=== PATIENT | female | born 1955 | race Caucasian/White ===

== ENCOUNTER → 2017-08-26 08:47 | Outpatient (CLI) | payer OTHER, SELFPAY | PROVIDERS: Family Provider Internal Medicine Adolescent Medicine; PCP Internal Medicine Adolescent Medicine; Visit Provider Nurse Practitioner Family | DX: E11.9 Type 2 diabetes mellitus without complications (principal); Z71.3 Dietary counseling and surveillance | CPT/HCPCS: 97802; G0108 ==

== ENCOUNTER → 2017-12-18 09:55 | Outpatient (CLI) | payer OTHER, SELFPAY ==
[2017-12-18 10:55] LABS: Alanine Aminotransferase 33 U/L (12-78); Albumin Level 3.5 gm/dL (3.4-5.0); Albumin/Globulin Ratio 0.8 (1.1-1.8); Alkaline Phosphatase 91 U/L (46-116); Anion Gap 10.1 mEq/L (5-15); Aspartate Amino Transferase 20 U/L (15-37); Bilirubin,Total 0.3 mg/dL (0.2-1.0); Blood Urea Nitrogen 21 mg/dL (7-18); Calcium 8.9 mg/dL (8.5-10.1); Carbon Dioxide 29 mmol/L (21.0-32.0); Chloride 106 mmol/L (98-107); Chol/HDL Ratio 4.5 (1-3.5); Cholesterol 279 mg/dL (140-200); Creatinine,Serum 0.59 mg/dL (0.55-1.02); Estimated Glomerular Filt Rate 104 ml/min (>60); Free Thyroxine Index 2.7 ug/dL (5.93-13.13); GFR (African American) 126 ML/MIN (>60); Globulin 4.3 gm/dl (1.3-3.2); Glucose 97 mg/dL (74-106); HDL Cholesterol 62 mg/dL (29-89); LDL Cholesterol 181 mg/dL (0-130); Potassium 4.1 mmoL/L (3.5-5.1); Sodium 141 mmol/L (136-145); T4 (Thyroxine) 8.1 ug/dl (4.7-13.3); Thyroid Stimulating Hormone 1.63 uIU/ml (0.358-3.740); Total Protein,Serum 7.8 gm/dL (6.4-8.2); Triglycerides 180 mg/dL (30-200); Triiodothryronine (T3) Uptake 33 % (31-39); VLDL Cholesterol 36 mg/dL (0-40)
[2017-12-18 10:58] LABS: Hemoglobin A1C 5.6 % (0.0-7.0)
== END ==
PROVIDERS: PCP Internal Medicine Adolescent Medicine; Visit Provider Nurse Practitioner Family
DX: E78.5 Hyperlipidemia, unspecified (principal); E11.9 Type 2 diabetes mellitus without complications; I10 Essential (primary) hypertension; R94.6 Abnormal results of thyroid function studies
CPT/HCPCS: 36415; 80053; 80061; 83036; 84436; 84443; 84479

== ENCOUNTER → 2018-09-16 10:07 | Outpatient (CLI) | payer OTHER, SELFPAY ==
[2018-09-16 10:52] LABS: Hemoglobin A1C 5.8 % (0.0-7.0)
[2018-09-16 12:09] LABS: Alanine Aminotransferase 30 U/L (12-78); Albumin Level 3.7 gm/dL (3.4-5.0); Albumin/Globulin Ratio 0.8 (1.1-1.8); Alkaline Phosphatase 97 U/L (46-116); Aspartate Amino Transferase 20 U/L (15-37); Bilirubin,Total 0.5 mg/dL (0.2-1.0); Blood Urea Nitrogen 14 mg/dL (7-18); Calcium 9.2 mg/dL (8.5-10.1); Carbon Dioxide 25 mmol/L (21.0-32.0); Chloride 105 mmol/L (98-107); Cholesterol 266 mg/dL (140-200); Creatinine,Serum 0.58 mg/dL (0.55-1.02); Estimated Glomerular Filt Rate 106 ml/min (>60); GFR (African American) 128 ML/MIN (>60); Globulin 4.6 gm/dl (1.3-3.2); Glucose 106 mg/dL (74-106); HDL Cholesterol 66 mg/dL (29-89); LDL Cholesterol 170 mg/dL (0-130); Sodium 142 mmol/L (136-145); Total Protein,Serum 8.3 gm/dL (6.4-8.2); Triglycerides 148 mg/dL (30-200); VLDL Cholesterol 30 mg/dL (0-40)
[2018-09-17 08:26] LABS: Microalbumin, Urine 11.3 ug/mL (Not Estab.)
== END ==
PROVIDERS: Visit Provider Internal Medicine Adolescent Medicine
DX: E78.5 Hyperlipidemia, unspecified (principal); E03.9 Hypothyroidism, unspecified; I10 Essential (primary) hypertension
CPT/HCPCS: 36415; 80053; 80061; 82043; 82570; 83036; 84443

== ENCOUNTER → 2019-08-03 09:39 | Outpatient (CLI) | payer OTHER, SELFPAY ==
[2019-08-03 10:08] LABS: Basophils # 0.1 K/mm3 (0-0.2); Basophils % 0.8 % (0.1-2.0); Eosinophils # 0.4 K/mm3 (0.0-0.4); Eosinophils % 4.9 % (0.1-12.0); Hematocrit 40.1 % (37.0-47.0); Hemoglobin 12.7 g/dL (12.2-16.2); Lymphocytes # 1.9 K/mm3 (0.7-4.5); Lymphocytes % 24.9 % (10-50); Mean Corpuscular HGB Conc 31.8 g/dL (31.8-35.4); Mean Corpuscular Hemoglobin 26.5 pg (27.0-31.2); Mean Corpuscular Volume 83.6 fl (81-99); Monocytes # 0.4 K/mm3 (0.1-1.0); Monocytes % 5.5 % (1.7-9.3); Neutrophils # 4.7 K/mm3 (1.8-7.8); Neutrophils % 63.9 % (37.0-80.0); Platelet Count 365 K/mm3 (142-424); Red Blood Count 4.79 M/mm3 (4.20-5.40); Red Cell Distribution Width 13.9 % (11.5-17.5); White Blood Count 7.4 K/mm3 (4.8-10.8)
[2019-08-03 11:32] LABS: Chloride 104 mmol/L (98-107); Potassium 4.4 mmoL/L (3.5-5.1); Sodium 139 mmol/L (136-145)
[2019-08-03 11:35] LABS: Alanine Aminotransferase 31 U/L (12-78); Albumin Level 4.2 g/dl (3.5-5.0); Albumin/Globulin Ratio 1.2 (1.1-1.8); Alkaline Phosphatase 88 U/L (38-126); Anion Gap 12.4 mEq/L (5-15); Aspartate Amino Transferase 31 U/L (14-36); Bilirubin,Total 0.4 mg/dl (0.2-1.3); Blood Urea Nitrogen 16 mg/dl (7-17); Carbon Dioxide 27 mmol/L (22.0-30.0); Cholesterol 265 mg/dl (140-200); Estimated Glomerular Filt Rate 102 ml/min (>60); GFR (African American) 123 ML/MIN (>60); Globulin 3.5 g/dL (1.3-3.2); Total Protein,Serum 7.7 g/dl (6.3-8.2); Triglycerides 230 mg/dl (30-150); VLDL Cholesterol 46 mg/dL (0-40)
[2019-08-03 11:36] LABS: Calcium 9.7 mg/dl (8.4-10.2); Chol/HDL Ratio 5.1 (1-3.5); Glucose 115 mg/dl (74-100); HDL Cholesterol 52 mg/dl (40-60)
[2019-08-03 11:47] LABS: Direct LDL Cholesterol 166.29 mg/dL (100-129)
[2019-08-03 11:52] LABS: Free T4 (Free Thyroxine) 1.01 ng/dl (0.78-2.19)
[2019-08-03 12:06] LABS: Thyroid Stimulating Hormone 1.64 uIU/mL (0.465-4.68)
[2019-08-04 10:37] LABS: Vitamin B12 710 pg/mL (232-1245); Vitamin D 25 Hydroxy 16.2 ng/mL (30.0-100.0)
[2019-08-04 11:09] LABS: Creatinine, Urine 143.1 mg/dL (Not Estab.); Microalbumin, Urine 7.7 ug/mL (Not Estab.)
== END ==
PROVIDERS: Visit Provider Nurse Practitioner Family
DX: E03.9 Hypothyroidism, unspecified (principal); E55.9 Vitamin D deficiency, unspecified; E78.2 Mixed hyperlipidemia; E11.9 Type 2 diabetes mellitus without complications; R53.81 Other malaise; M89.9 Disorder of bone, unspecified; M94.9 Disorder of cartilage, unspecified
CPT/HCPCS: 36415; 80053; 80061; 82043; 82570; 82607; 82652; 83036; 84439; 84443; 85025

== ENCOUNTER → 2019-08-18 08:47 | Outpatient (CLI) | payer OTHER, SELFPAY ==
--- NOTE | 2019-08-18 08:50 | MM_ITS ---
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 R2 CAD reviewed. FINDINGS: Mostly fatty replaced fibroglandular tissue. There are bilateral benign-appearing nodules which are stable. Benign-appearing calcifications are also noted. No malignant appearing mass or malignant-appearing microcalcification IMPRESSION: BI-RAD Category: 2 Benign Finding(s) FOLLOW-UP: 1YR 1 Year Follow-up (A letter has been sent to the patient regarding results of the study.) Dictated by: Butch Dang MD 08/22/2019 09:50 Electronically signed by Butch Dang MD in [place] 08/22/2019 09:50
== END ==
PROVIDERS: PCP Internal Medicine Adolescent Medicine; Visit Provider Nurse Practitioner Family
DX: Z12.31 Encounter for screening mammogram for malignant neoplasm of breast (principal)
CPT/HCPCS: 77063; 77067

== ENCOUNTER → 2020-12-06 12:14 | Outpatient (CLI) | payer OTHER, SELFPAY ==
[2020-12-06 13:44] LABS: Hemoglobin A1C 5.5 % (4.0-6.0)
[2020-12-06 14:14] LABS: Chloride 104 mmol/L (98-107); Potassium 4.7 mmoL/L (3.5-5.1); Sodium 144 mmol/L (136-145)
[2020-12-06 14:16] LABS: Blood Urea Nitrogen 20 mg/dl (7-17); Estimated Glomerular Filt Rate 85 ml/min (>60); GFR (African American) 102 ML/MIN (>60)
[2020-12-06 14:17] LABS: Alanine Aminotransferase 42 U/L (12-78); Albumin Level 4.9 g/dl (3.5-5.0); Albumin/Globulin Ratio 1.1 (1.1-1.8); Alkaline Phosphatase 115 U/L (38-126); Anion Gap 18.7 mEq/L (5-15); Aspartate Amino Transferase 42 U/L (14-36); Bilirubin,Total 0.6 mg/dl (0.2-1.3); Calcium 10.7 mg/dl (8.4-10.2); Carbon Dioxide 26 mmol/L (22.0-30.0); Chol/HDL Ratio 4.3 (1-3.5); Cholesterol 243 mg/dl (140-200); Globulin 4.4 g/dL (1.3-3.2); Glucose 105 mg/dl (74-100); HDL Cholesterol 56 mg/dl (40-60); Total Protein,Serum 9.3 g/dl (6.3-8.2); Triglycerides 175 mg/dl (30-150); VLDL Cholesterol 35 mg/dL (0-40)
[2020-12-06 14:33] LABS: 25-OH Vitamin D, Total 25.2 ng/mL (30-100)
[2020-12-06 14:48] LABS: Thyroid Stimulating Hormone 3.09 uIU/mL (0.465-4.68)
== END ==
PROVIDERS: Visit Provider Nurse Practitioner Family
DX: E11.9 Type 2 diabetes mellitus without complications (principal); E78.2 Mixed hyperlipidemia; E03.9 Hypothyroidism, unspecified; E55.9 Vitamin D deficiency, unspecified
CPT/HCPCS: 36415; 80053; 80061; 82306; 83036; 84443

== ENCOUNTER → 2021-11-21 08:12 | Outpatient (CLI) | payer BC, SELFPAY ==
--- NOTE | 2021-11-21 08:30 | XR_ITS ---
FINAL REPORT TECHNIQUE: Bone mineral density was calculated of the right forearm and left hip. CLINICAL HISTORY: . post menopausal FINDINGS: Using the distal right forearm, the bone mineral density of the right forearm is 0.638 g/cm2, corresponding to T-score of -0.9 Using the left hip, the bone mineral density of the left femoral neck is 0.905 g/cm2, corresponding to a T-score of 0.5. NOTE: T-score: Standard deviation compared with peak bone mass of young adult mean. *Following the recommendations of the International Society of Bone densitometry, classification of hip BMD is based on the lower of two T-scores; total hip or femoral neck. IMPRESSION: Normal bone mineral density of the right forearm and left hip. Reviewed, Interpreted and Dictated by Juan Loera III, MD Transcribed by Yen Condon Authenticated and [facility]
--- NOTE | 2021-11-21 08:30 | MM_ITS ---
PROCEDURE INFORMATION: Exam: MG Bilateral Screening 3D Mammography Exam date and time: 11/21/2021 8:29 AM Age: 66 years old Clinical indication: Screening examination TECHNIQUE: Imaging protocol: Bilateral Screening tomosynthesis and 2D mammography including computer-aided detection (CAD) when performed. COMPARISON: 1. MG MM DIG SCREENING MAMM BI W/CAD 08/18/2019 9:09 AM 2. MG DMSB DIG MAMM-SCREEN ANILA 09/04/2013 9:48 AM FINDINGS: MAMMOGRAPHY: Breast composition: There are scattered areas of fibroglandular density. Mass: None. Architectural distortion: None. Calcifications: No suspicious calcifications. Asymmetric density: None. Skin thickening: None. Axillary adenopathy: None. IMPRESSION: No mammographic evidence of malignancy. Annual screening is recommended unless otherwise clinically indicated. ASSESSMENT: BI-RADS Category 1: Negative
== END ==
PROVIDERS: PCP Nurse Practitioner Family; Visit Provider Nurse Practitioner Family
DX: Z12.31 Encounter for screening mammogram for malignant neoplasm of breast (principal); Z13.820 Encounter for screening for osteoporosis; Z78.0 Asymptomatic menopausal state
CPT/HCPCS: 77063; 77067; 77080

== ENCOUNTER → 2023-02-18 07:57 | Outpatient (CLI) | payer MEDICARE, SELFPAY ==
--- NOTE | 2023-02-18 08:02 | MM_ITS ---
PROCEDURE INFORMATION: Exam: MG Bilateral Screening 3D Mammography Exam date and time: 02/18/2023 7:50 AM Age: 67 years old Clinical indication: Screening mammogram TECHNIQUE: Imaging protocol: Bilateral Screening tomosynthesis and 2D mammography including computer-aided detection (CAD) when performed. COMPARISON: 1. MG MM DIG SCREENING MAMM BI W/CAD 11/21/2021 8:29 AM 2. MG MM DIG SCREENING MAMM BI W/CAD 08/18/2019 9:09 AM 3. MG DMSB DIG MAMM-SCREEN ANILA 09/04/2013 9:48 AM 4. MG DMSB DIGITAL MAMM-SCREEN BILATERAL 04/16/2010 9:13 AM FINDINGS: MAMMOGRAPHY: Breast composition: There are scattered areas of fibroglandular density. Mass: Stable benign-appearing subcentimeter nodules are present in the bilateral breast. No new or morphologically suspicious nodule has developed to suggest malignancy. Architectural distortion: No new or suspicious architectural distortion. Calcifications: No new or suspicious calcifications are present Asymmetric density: No new or suspicious asymmetric density is present Skin thickening: None. Axillary adenopathy: None. IMPRESSION: No mammographic evidence of malignancy. Recommend annual screening mammography unless otherwise clinically indicated. ASSESSMENT: BI-RADS category 2: Benign
== END ==
PROVIDERS: PCP Nurse Practitioner Family; Visit Provider Nurse Practitioner Family
DX: Z12.31 Encounter for screening mammogram for malignant neoplasm of breast (principal)
CPT/HCPCS: 77063; 77067

== ENCOUNTER 2024-10-28 19:46 | Emergency (ER) | payer MEDICARE, SELFPAY ==
[2024-10-28 19:51] VITALS: BP 157/77; PULSE 86; RESP 18; TEMP 36.8; O2SAT 96; BMI 35.6
--- NOTE | 2024-10-28 19:56 | XR_ITS ---
PROCEDURE INFORMATION: Exam: XR Chest Exam date and time: 10/28/2024 8:09 PM Age: 69 years old Clinical indication: Injury or trauma; Fall; Other: Left rib pain; Additional info: Fall with left rib pain TECHNIQUE: Imaging protocol: Radiologic exam of the chest. Views: 2 views. COMPARISON: No relevant prior studies available. FINDINGS: Lungs: Unremarkable. No consolidation. Pleural spaces: Unremarkable. No pleural effusion. No pneumothorax. Heart/Mediastinum: Unremarkable. No cardiomegaly. Bones/joints: Unremarkable. IMPRESSION: No acute findings.
--- NOTE | 2024-10-28 21:01 | CT_ITS ---
PROCEDURE INFORMATION: Exam: CT Chest Without Contrast; Diagnostic Exam date and time: 10/28/2024 9:23 PM Age: 69 years old Clinical indication: Injury or trauma; Fall; Other: L thoracic cage pain; Additional info: Fall, L thoracic cage pain TECHNIQUE: Imaging protocol: Diagnostic computed tomography of the chest without contrast. Radiation optimization: All CT scans at this facility use at least one of these dose optimization techniques: automated exposure control; mA and/or kV adjustment per patient size (includes targeted exams where dose is matched to clinical indication); or iterative reconstruction. COMPARISON: CR XR CHEST 2V 10/28/2024 8:09 PM FINDINGS: Lungs: Bibasilar atelectasis. Pleural spaces: Unremarkable. No pneumothorax. No pleural effusion. Heart: Unremarkable. No cardiomegaly. No pericardial effusion. Lymph nodes: Unremarkable. No enlarged lymph nodes. Vasculature: Unremarkable. No aortic aneurysm. Bones/joints: Unremarkable. No acute fracture. Soft tissues: Unremarkable. IMPRESSION: No acute findings.
--- NOTE | 2024-10-28 21:04 | HMH.EDGENADL ---
Discharge Plan Disposition Patient Disposition: Home, Self-Care Prescriptions Prescriptions: New methocarbamol 500 mg tablet 1,000 mg PO Q8H PRN (Reason: muscle pain and spasm) Qty: 30 0RF No Action venlafaxine 75 MG tablet 75 mg PO DAILY metoprolol ta-hydrochlorothiaz 1 EACH tablet 1 each PO DAILY levothyroxine 50 MCG tablet 50 mcg PO DAILY pantoprazole 40 MG tablet,delayed release (DR/EC) 40 mg PO DAILY ergocalciferol (vitamin D2) 50,000 UNIT capsule 50,000 unit PO WEEKLY linagliptin-metformin 1 EACH tablet, IR - ER, biphasic 24hr 1 each PO DAILY Referrals Follow up/Referrals: Shlomo Maradiaga MD [Primary Care Provider] - See instructions Activity Restrictions/Add. Instructions Additional Instructions/Restrictions: At this time it was felt you are safe to be discharged home. If new or worsening symptoms please do not hesitate to return the emergency department. Please take your medications as prescribed. Clinical Impressions Clinical Impression: Pain in rib, Muscle strain Print Language Print Language: Kyrgyz Discharge ED Provider: Vega Choi General Adult HPI General Chief complaint: PAIN Stated complaint: AO 5-17 fell and hurt left ribs,SOA Time Seen by Provider: 10/28/24 20:20 Mode of Arrival: Ambulatory Source of Information: Patient Description of Symptoms (Recalled from ER Triage Doc. by RN): Pt presents for evaluation of left sided rib pain after falling at the [employer] parking lot yesterday when attempting to fruit picker an item that blew out of her car. Pt states she landed on her left side. SHe states it knocked the wind out of her . Pt continues to have sharp pain that is worse with movement and coughing. Pt states this AM she took ibuprofen for pain. Pt states she did not hit her head, -loc/-bt History of Present Illness HPI narrative: Patient is 69-year-old female not on anticoagulants presents emergency department for evaluation of traumatic injury sustained in a mechanical fall. Onset was acute, she tripped while shopping yesterday on her left thoracic cage did not hit her head no anticoagulants, she has a scratch over her left lateral hand that is not causing her significant pain. She has pain over her left rib cage that is worse with taking a deep breath, no abdominal trauma no other extremity trauma no other acute complaints at this time. Related Data Home Medications ?Medication ?Instructions ?Recorded ?Confirmed ergocalciferol (vitamin D2) 1,250 50,000 unit PO WEEKLY Supplement 08/17/19 08/17/19 mcg (50,000 unit) capsule levothyroxine 50 mcg tablet 50 mcg PO DAILY hypothroidism 08/17/19 08/17/19 linagliptin 5 mg-metformin ER 1 each PO DAILY Diabetes 08/17/19 08/17/19 1,000 mg tablet,extended release 24 hr metoprolol tartrate 50 1 each PO DAILY blood pressure 08/17/19 08/17/19 mg-hydrochlorothiazide 25 mg tablet pantoprazole 40 mg tablet,delayed 40 mg PO DAILY acid reflux 08/17/19 08/17/19 release venlafaxine 75 mg tablet 75 mg PO DAILY Depression 08/17/19 08/17/19 Previous Rx's ?Medication ?Instructions ?Recorded methocarbamol 500 mg tablet 1,000 mg (2 x 500 mg) PO Q8H PRN 10/28/24 muscle pain and spasm #30 tabs Allergies Allergy/AdvReac Type Severity Reaction Status Date / Time mepivacaine (MEPIVACAINE) Allergy Unknown Verified 08/17/19 09:17 [facility] Disclaimer: The information contained in this section may have been updated after the patient was seen, as this information can be updated by other users. Social History Smoking Status: Never smoker alcohol intake: never current occupational status: unemployed Travel in the last 8 weeks?: None caffeine: Yes Have you lived/traveled outside US in past 30 days?: No Contact w/someone who lives/traveled outside US past 30 days?: No Exposure to someone with infectious disease in past 14 days?: No Do you have a fever (greater than 100.4 F or 38 C)?: No Have you tested positive for COVID-19?: No Exposed to someone with COVID-19 in past 14 days?: No Do you have a sore throat?: No Do you have a cough?: No Do you have any weakness?: No Do you have any diarrhea?: No Are you experiencing any unusual bleeding?: No Do you have any muscle aches/pain?: No Do you have any abdominal pain?: No Are you experiencing loss of taste or smell?: No Other Medical History Have you received the Flu Vaccine for this season: No Have you received the Pneumonia Vaccine: No ROS Obtained: Yes Systems reviewed as appropriate & no additional complaints except as documented Physical Exam General General appearance: in no apparent distress Comment: Appearing uncomfortable in chair at bedside Head Head exam: atraumatic and normocephalic Eye Eye exam: Present PERRL and EOMI ENT ENT exam: Present mucous membranes moist Neck Neck exam: Present normal inspection Chest Chest inspection: Present normal inspection, symmetric chest wall rise and tenderness (Left anterolateral thoracic cage no overlying bruising) Respiratory Respiratory exam: Present normal lung sounds bilaterally; Absent respiratory distress Cardiovascular Cardiovascular exam: Present regular rate and normal rhythm Abdominal Exam Abdominal exam: Present soft; Absent tenderness, guarding or rebound Extremities Exam Extremities exam: Present normal inspection Neurological Exam Neurological exam: Present alert Psychiatric Psychiatric exam: Present normal affect Skin Skin exam: Present warm and dry Medical Decision Making Medical Records Screening: Per USPSTF and CDC recommendations, given the prevalence of disease in our region, it is our hospital?s policy to screen for HIV and viral Hepatitis for all patients aged 18 and over and those with ongoing risk factors. [place] Inquiry Pt receiving controlled substance: No Vital Signs: 10/28/24 19:51 10/28/24 22:12 10/28/24 22:30 Temperature 98.3 F Temperature Source Oral Pulse Rate 78 72 Pulse Rate [Right] 86 Respiratory Rate 18 16 Blood Pressure 136/92 H 132/80 Blood Pressure [Right Arm] 157/77 H Blood Pressure Mean [Right Arm] 103 Blood Pressure Source Automatic Cuff Blood Pressure Source [Right Arm] Automatic Cuff Blood Pressure Position Sitting Blood Pressure Position [Right Arm] Sitting 02 Sat by Pulse Oximetry 96 96 95 Oxygen Delivery Method Room Air Room Air Orders (Tests/Meds): ED MEDICATIONS Discontinued Medications Generic Name Dose Route Start Last Admin Trade Name Freq PRN Reason Stop Dose Admin Acetaminophen 1,000 mg 10/28/24 21:01 10/28/24 21:34 Acetaminophen 500mg Tab PO 10/28/24 21:02 1,000 mg ONCE ONE Administration Ibuprofen 600 mg 10/28/24 21:01 10/28/24 21:34 Ibuprofen 600 Mg Tablet PO 10/28/24 21:02 600 mg ONCE ONE Administration Lidocaine 1 each 10/28/24 21:01 10/28/24 21:34 Lidocaine 5% Transdermal Patch TD 10/28/24 21:02 1 each ONCE ONE Administration Oxycodone HCl 5 mg 10/28/24 21:03 10/28/24 21:34 Oxycodone 5mg Immediate Release Tablet PO 10/28/24 21:04 5 mg ONCE ONE Administration ORDERS Category Date Time Status CT chest wo con Stat Cat Scan 10/28/24 21:01 Completed Chest XR 2 view (NOT portable) [XR chest 2V] Stat Exams 10/28/24 19:56 Completed Medical Decision Narrative: In summary patient is 69-year-old female with past medical history described above who presents emergency department for evaluation of traumatic injury sustained in a fall. Patient is hemodynamically stable nontoxic-appearing upon arrival, afebrile. Differential diagnosis includes rib fracture, pulmonary contusion, musculoskeletal strain, among others. Initial workup we conducted with CT chest without contrast given the patient does not take anticoagulants and her morbidity from multiple rib fractures will be high. Initial inventions include multimodal pain control. Chest CT informally visualized by me, no acute obvious significantly displaced left-sided rib fractures. Formal read shows no acute pathology. Given this patient is appropriate for outpatient management at this time will be discharged with a course of Robaxin and lidocaine patches and was given return precautions. Critical Care Critical Care Time Critical Care Time: No
[2024-10-28] MEDS: ACETAMINOPHEN 500MG TAB 1000 MG PO (21:34)
[2024-10-28] MEDS: OXYCODONE 5MG IMMEDIATE RELEASE TABLET 5 MG PO (21:34)
[2024-10-28] MEDS: IBUPROFEN 600 MG TABLET PO (21:34)
[2024-10-28] MEDS: LIDOCAINE 5% TRANSDERMAL PATCH 1 EACH TD (21:34)
[2024-10-28 22:12] VITALS: BP 136/92; PULSE 78; RESP 16; O2SAT 96
[2024-10-28 22:30] VITALS: BP 132/80; PULSE 72; O2SAT 95
[2024-10-28 23:29] VITALS: BP 131/80; PULSE 76; RESP 20; TEMP 36.8; O2SAT 94
== END 2024-10-28 23:37 | disposition home or self-care (01) ==
PROVIDERS: Emergency Provider Emergency Medicine; PCP Internal Medicine Adolescent Medicine
DX: R07.81 Pleurodynia (principal); S29.011A Strain of muscle and tendon of front wall of thorax, initial encounter; W19.XXXA Unspecified fall, initial encounter
CPT/HCPCS: 71046; 71250; 99284

== ENCOUNTER 2024-12-05 17:05 | Outpatient (CLI) | payer MEDICARE, SELFPAY ==
--- OUTSIDE RECORDS SUMMARY | 2024-12-05 17:10 | XMS_ITS | Clinical Summary ---
Author Organization [facility] Address [address] [place] [address] Phone Care Team Providers Care Building Energy Retrofit Technician Name Role Phone Juanita SHERMAN, Alexandreaashmyla Unavailable Conditions or Problems No information available. Medications No information available. Medications Administered No information available. Allergies, Adverse Reactions, Alerts No information available. Results No information available. Plan of Care No information available. Procedures No information available. Vital Signs No information available. Immunizations No information available. Advance Directives No information available.
--- OUTSIDE RECORDS SUMMARY | 2024-12-05 17:11 | XMS_ITS | Clinical Summary ---
Author Organization Healthcare Address [facility] [place] [address] Care Team Providers Care Sales Service Representative Name Role Phone Shlomo Maradiaga MD Primary Care Provider + [phone] Family History Medical History Relation Name Comments Cardiac disorder Father Depression Father Hypertension Father Depression Mother Hypertension Mother Relation Name Status Comments Father Mother Social History Tobacco Use Types Packs/Day Years Used Date Smoking Tobacco: Never Alcohol Use Standard Drinks/Week Comments No 0 (1 standard drink = 0.6 oz pur e alcohol) Comments Unknown Sex and Gender Information Value Date Recorded Sex Assigned at Not on file Legal Sex Female 8:59 PM EDT Gender Identity Not on file Sexual Orientation Not on file Last Filed Vital Signs Vital Sign Reading Time Taken Comments Blood Pressure - - Pulse - - Temperature - - Respiratory Rate - - Oxygen Saturation - - Inhaled Oxygen Concentration - - Weight 93.4 kg (206 lb) 05/01/2015 10:00 AM EST Height 160 cm (5' 3 ) 05/01/2015 10:00 AM EST Body Mass Index 36.49 05/01/2015 10:00 AM EST Plan of Treatment Not on file Care Teams Sales Service Representative Relationship Specialty Start Date End Date Shlomo Maradiaga MD [address] [place] [address] [place] [id number] PCP - General 10/25/20
--- OUTSIDE RECORDS SUMMARY | 2024-12-05 17:12 | XMS_ITS | Clinical Summary ---
Author Organization [facility] Address [address] [place] [address] Phone Care Team Providers Care Wood Products Manufacturer Name Role Phone Shlomo Maradiaga MD Primary Care Provider [phone] Allergies No known active allergies Medications metoprolol succinate (TOPROL-XL) 50 mg Oral Tablet Sustained Release 24 hr Take 50 mg by mouth daily. Active pantoprazole (PROTONIX) 40 mg Oral Tablet, Delayed Release (E.C.) Take 40 mg by mouth daily. Active docusate sodium (COLACE) 100 mg Oral Capsule Take 1 Cap by mouth 2 times daily as needed for Constipation. 30 Cap 7 Active Additional Information Patient not taking.Reason: Therapy Completed, Reported on 01/05/2019 oxyCODONE (ROXICODONE) 5 mg Oral Tablet Take 1-3 Tabs by mouth every 6 hours as needed for Pain. 60 Tab 7 Active Additional Information Patient not taking.Reason: Therapy Completed, Reported on 01/05/2019 LEVOthyroxine (SYNTHROID) 50 mcg Oral Tablet Take 50 mcg by mouth daily. 1 9 Active metFORMIN XR (GLUCOPHAGE-XR) 500 mg Oral Tablet Sustained Release 24 hr Take 1,000 mg by mouth daily. 1 9 Active venlafaxine (EFFEXOR-XR) 37.5 mg Oral Capsule, Sust. Release 24 hr Take 37.5 mg by mouth daily. 4 9 Active losartan (COZAAR) 25 mg Oral Tablet Take 25 mg by mouth daily. 3 Active Active Problems Problem Noted Date Diagnosed Date Right knee pain 08/22/2024 Left shoulder tendonitis 03/15/2023 Varicose veins of bilateral lower extremities wi th pain 01/14/2021 Surgical History Surgery Date Site/Laterality Comments BACK SURGERY lumbar fusion HIP SURGERY SI joint fusion CHOLECYSTECTOMY EYE SURGERY Left retina torn COLONOSCOPY UPPER GASTROINTESTINAL ENDOSCOPY KNEE ARTHROPLASTY 09/18/2016 Right RIGHT PARTIAL KNEE ARTHROPLASTY ; Surgeon: Kendell Butt MD; Location: [facility]; Service: Orthopedics Medical devices from this surgery are in the Medical Devices section. Medical History Medical History Date Comments Sleep apnea does not use mac gokul Hyperlipidemia Hypertension Heartburn Arthritis Urinary tract infection Anemia Encounter for blood transfusion Depression no medication Panic attack as reaction to stress Motion sickness Post-operative nausea and vomiting Family History Medical History Relation Name Comments Arthritis Father Depression Father Heart Disease Father High Blood Pressure Father High Cholesterol Father Anesth Problems Mother N/V Arthritis Mother COPD Mother Depression Mother Heart Disease Mother High Blood Pressure Mother High Cholesterol Mother Anesth Problems Sister N/V Relation Name Status Comments Father Mother Sister Social History Tobacco Use Types Packs/Day Years Used Date Smoking Tobacco: Never Smokeless Tobacco: Never Alcohol Use Standard Drinks/Week Comments No 0 (1 standard drink = 0.6 oz pur e alcohol) Comments No Sex and Gender Information Value Date Recorded Sex Assigned at Not on file Legal Sex Female 3:39 PM EDT Gender Identity Not on file Sexual Orientation Not on file Obstetrics History Last Filed Vital Signs Vital Sign Reading Time Taken Comments Blood Pressure 128/83 07/08/2021 11:07 AM EST Pulse 80 07/08/2021 11:07 AM EST Temperature 36.2 C (97.2 F) 07/08/2021 11:07 AM EST Respiratory Rate 16 09/18/2016 4:23 PM EDT Oxygen Saturation 93% 09/18/2016 4:23 PM EDT Inhaled Oxygen Concentration - - Weight 89.4 kg (197 lb) 08/22/2024 12:34 PM EDT Height 154.9 cm (5' 1 ) 08/22/2024 12:34 PM EDT Body Mass Index 37.22 08/22/2024 12:34 PM EDT Plan of Treatment Health Maintenance Due Date Last Done Comments Annual Wellness Exam 1960 Hepatitis C Screening 09/17/1975 Breast Cancer Screening 1997 Cologuard 2002 Colon Cancer Screening 2002 Colonoscopy 2002 FIT 2002 Sigmoidoscopy 2002 Virtual Colonography 2002 Zoster (1 of 2) 09/17/2007 Bone Density Screening 2022 COVID-19 Vaccine (1 - 2023-2 5 season) 2024 DTaP/TDaP/Td (2 - Td or Tdap) 04/05/2024, 08/17/1996 Influenza Vaccine (Season Ended) 2025 02/18/2023, 04/26/2020 Pneumococcal Vaccine 50+ Completed 02/18/2023 Hepatitis B Vaccine Aged Out No longe r eligible based on patient's age to complete this topic Meningococcal B Vaccine Aged Out No l onger eligible based on patient's age to complete this topic Medical Devices Implanted Type Area Fuel Conversion Technician Device Identifier Shelf Expiration Date Model / Serial / Lot Rods In Back Right Hip Pins Component Tibial Precoat Rt Medial Left Lateral Sz-1 Uni - [id number] Implanted:Qty: 1 on 09/18/2016 by Kendell Butt MD at [facility] Right: Knee STRE[address] & [employer]PHEW:ORTHO 04/13/2025 [id number] / / [id number] Cement[employer]Palacos R - [id number] Implanted:Qty: 1 on 09/18/2016 by Kendell Butt MD at [facility] Right: Knee [employer] 07/14/2020 [id number] / / [id number] Surface Articulating Vivacit-E Sz 1 -10mm - [id number] Implanted:Qty: 1 on 09/18/2016 by Kendell Butt MD at [facility] Right: Knee STRE[address] & NEPHEW:ORTHO 08/11/2018 [id number] / / [id number] Component Femoral Flex High Sz-C Rt Medial Lt Lateral Uni Kn - [id number] Implanted:Qty: 1 on 09/18/2016 by Kendell Butt MD at [facility] Right: Knee STRE[address] & [employer]:ORTHO [id number] / / Insurance JAGDISH PPO JAGDISH JETER MR Care Teams Wood Products Manufacturer Relationship Specialty Start Date End Date Shlomo Maradiaga MD [address] [facility] [facility] [place] [id number] PCP - General Internal Medicine-Adolescent Medicine 09/02/16
--- OUTSIDE RECORDS SUMMARY | 2024-12-05 17:12 | XMS_ITS | Clinical Summary ---
Author Organization [facility] Address [address] [place] [address] Care Team Providers Care Teacher Kindergarten Name Role Phone Unavailable Primary Care Provider Unavailabl e Source Comments This information has been disclosed to you from confidential records protectedfrom disclosure by state law. You shall make no further disclosure of thisinformation without the specific, written, and informed release of theindividual to whom it pertains, or as otherwise permitted by law. A generalauthorization for the release of medical or other information is not sufficientfor the purposes of therelease of HIV test results or diagnoses. [id number] Health Encounters Date Type Department Care Team Description 10/02/2024 Orders Only [facility] [address] [place] [address] Jessi Nick, POLLY Neoplasm of uncertain behavior of skin (Primary Dx) from Last 3 Months Social History Tobacco Use Types Packs/Day Years Used Date Smoking Tobacco: Never Assessed Comments Unknown Sex and Gender Information Value Date Recorded Sex Assigned at Not on file Legal Sex Female 7:16 PM EST Gender Identity Not on file Sexual Orientation Not on file Plan of Treatment Not on file Procedures Procedure Name Priority Date/Time Associated Diagnosis Comments SKIN / NAIL BIOPSY Routine 09/29/2024 12 :00 AM EDT Neoplasm of uncertain behavior of skin from Last 3 Months Results * Skin / nail biopsy (09/29/2024 12:00 AM EDT) 09/29/2024 10/02/2024 Narrative [facility] - 09/29/2024 12:00 AM EDT CASE: [id number] PATIENT: JUANY DUVAL Clinical Impression: IN Site(s): L inguinal crease CPT Code(s): 48403 X 1 Diagnosis: Inflamed seborrheic keratosis. Microscopic Exam: There is hyperkeratosis, papillomatosis, acanthosis and a lymphocytic infiltrate in the superficial dermis. There is no atypia. Gross Description: A specimen of skin was received measurin x 12 x 3 mm Final Diagnosis performed by TONIA SY MD Electronically signed 10/03/2024 01:03:18 PM The Pathologist signing this report is located at [facility] Dermatopathology Laboratory, [address] [place] [address] Klaus [facility], [place], [address], , CLIA ID: [id number] [facility] DERM PROCEDURE ORDERABLES Mona l Result POWERPATH from Last 3 Months Insurance BLUE MEDICARE ADVANTAGE
[2024-12-06 06:11] LABS: Measles Antibodies, IgG >300.0 AU/mL (Immune >16.4); Mumps Abs, IgG 54.2 AU/mL (Immune >10.9)
== END 2024-12-05 23:59 | disposition home or self-care (01) ==
LOC: LAB 17:08
PROVIDERS: PCP Internal Medicine Adolescent Medicine; Visit Provider Nurse Practitioner Family
DX: Z23 Encounter for immunization (principal)
CPT/HCPCS: 36415; 86735; 86762; 86765

== ENCOUNTER 2024-12-09 18:17 | Emergency (ER) | payer MEDICARE, SELFPAY ==
--- OUTSIDE RECORDS SUMMARY | 2005-08-09 20:00 | XMS_ITS | Continuity of Care Document ---
Author Organization [facility] Address [address] [place] [address] Phone Care Team Providers Care Filament Welder Name Role Phone No Information Unavailable Unavailable Advance Directives Directive Yes / No Effective Date File Name No Information Encounters Encounter Description Practice Location Reason(s) For Visit Diagnoses Date Provider Providers Copied on Encounter [facility] , [address], [place], [address], [place] tel:[phone] JEAN-CLAUDECrowdSYNC [place] No Information No Information Family History Family Member Type Diagnosis Age At Onset No Information Payers Payer name Insurance type Covered democrat ID Authoriza tion(s) No Information Social History Type Description Quantity Date Captured Comments Sex Female Smoking Status No Information Chief Complaint And Reason For Visit No Information Reason For Referral Reason For Referral No Information History Of Present Illness Encounter Date Complaint History Of Prese nt Illness No Information Functional Status Date Functional Assessmen t No Information Instructions Date Instruction Additional Infor mation No Information Assessments Type Assessment Date No Information Patient Care Teams Name Effective Dates (start - stop) Status Members No Information
[2024-12-09 19:01] VITALS: BP 174/76; PULSE 87; RESP 16; TEMP 36.7; O2SAT 96; BMI 34.5
--- NOTE | 2024-12-09 19:14 | XR_ITS ---
PROCEDURE INFORMATION: Exam: XR Left Knee Exam date and time: 12/09/2024 7:16 PM Age: 69 years old Clinical indication: Pain; Knee; Left; Additional info: Injury, stepped on a step wrong while walking upstairs and felt a pop TECHNIQUE: Imaging protocol: Radiologic exam of the left knee. Views: 3 views. COMPARISON: No relevant prior studies available. FINDINGS: Bones/joints: Normal anatomic alignment. The bone density is normal for this patient's age. Mild osteoarthritis of the patellofemoral joint. Tibiofemoral joint spaces are well preserved. There is no evidence of a joint effusion. No acutely displaced fractures. No joint dislocation. No aggressive osseous lesions. Soft tissues: There is no significant soft tissue swelling. Vasculature: Punctate calcifications at the popliteal fossa, likely vascular related. IMPRESSION: No acute findings.
--- OUTSIDE RECORDS SUMMARY | 2024-12-09 19:14 | XMS_ITS | Clinical Summary ---
Author Organization [facility] Address [address] [place] [address] Phone Care Team Providers Care Rag Willow Operator Name Role Phone Juanita SHERMAN, Alexandreaashmyla Unavailable [...]
--- OUTSIDE RECORDS SUMMARY | 2024-12-09 19:14 | XMS_ITS | Clinical Summary ---
Author Organization Healthcare Address [facility] [place] [address] Care Team Providers Care Genetic Scientist Name Role Phone Shlomo Maradiaga MD Primary Care Provider [phone] Family History Medical History Relation Name Comments [...] of Treatment Not on file Care Teams Genetic Scientist Relationship Specialty Start Date End Date Shlomo Maradiaga MD [address] [place] [place] [id number] PCP - General 10/25/20
--- OUTSIDE RECORDS SUMMARY | 2024-12-09 19:15 | XMS_ITS | Clinical Summary ---
Author Organization [facility] Address [address] [place] [address] Care Team Providers Care Aviation Electrician Name Role Phone Unavailable Primary Care Provider [...] therelease of HIV test results or diagnoses. [id number] Health Encounters Date Type Department Care Team Description 10/02/2024 Orders Only [facility] [address] [place] [address] Jessi Nick, POLLY Neoplasm of uncertain behavior [...] [facility]PATH - 09/29/2024 12:00 AM EDT CASE: [id number] PATIENT: JUANY DUVAL Clinical Impression: IN Site(s): L inguinal crease CPT Code(s): 03373 X 1 Diagnosis: Inflamed seborrheic keratosis. Microscopic Exam: There is hyperkeratosis, papillomatosis, acanthosis and a lymphocytic infiltrate in the superficial dermis. There is no atypia. Gross Description: A specimen of skin was received measurin x 12 x 3 mm Final Diagnosis performed by TONIA SY MD Electronically signed 10/03/2024 01:03:18 PM The Pathologist signing this report is located at [facility] Dermatopathology Laboratory, [address] [place] [address] Klaus [facility], [place], [address], , CLIA ID: [id number] [facility] DERM PROCEDURE ORDERABLES Mona l Result POWERPATH from Last 3 Months Insurance BLUE MEDICARE ADVANTAGE
--- OUTSIDE RECORDS SUMMARY | 2024-12-09 19:15 | XMS_ITS | Clinical Summary ---
Author Organization [facility] Address [address] [place] [address] Phone Care Team Providers Care Post Partum Nurse Name Role Phone Shlomo Maradiaga MD Primary Care Provider [phone] Allergies No known active allergies Medications metoprolol [...] this topic Medical Devices Implanted Type Area Podiatry Teacher Device Identifier Shelf Expiration Date Model / Serial / Lot Rods In Back Right Hip Pins Component Tibial Precoat Rt Medial Left Lateral Sz-1 Uni - [id number] Implanted:Qty: 1 on 09/18/2016 by Kendell Butt MD at [facility] Right: Knee STREET & NEPHEW:ORTHO 04/13/2025 [id number] / / [id number] [employer]Palacos R - [id number] Implanted:Qty: 1 on 09/18/2016 by Kendell Butt MD at [facility] Right: Knee [employer] 07/14/2020 [id number] / / [id number] Surface Articulating Vivacit-E Sz 1 -10mm - [id number] Implanted:Qty: 1 on 09/18/2016 by Kendell Butt MD at [facility] Right: Knee STREET [employer] NEPHEW:ORTHO 08/11/2018 [id number] / / [id number] Component Femoral Flex High Sz-C Rt Medial Lt Lateral Uni Kn - [id number] Implanted:Qty: 1 on 09/18/2016 by Kendell Butt MD at [facility] Right: Knee STRE[address] & NEPHEW:ORTHO [id number] / / Insurance JAGDISH PPO JAGDISH JETER MR Care Teams Post Partum Nurse Relationship Specialty Start Date End Date Shlomo Maradiaga MD [address] [facility] [place] [phone] PCP - General Internal Medicine-Adolescent Medicine 09/02/16
--- NOTE | 2024-12-09 20:00 | HMH.EDGENADL ---
Discharge Plan Disposition Patient Disposition: Home, Self-Care Condition: Good Prescriptions Prescriptions: No Action venlafaxine 75 MG tablet 75 mg PO DAILY metoprolol ta-hydrochlorothiaz 1 EACH tablet 1 each PO DAILY levothyroxine 50 MCG tablet 50 mcg PO DAILY pantoprazole 40 MG tablet,delayed release (DR/EC) 40 mg PO DAILY ergocalciferol (vitamin D2) 50,000 UNIT capsule 50,000 unit PO WEEKLY linagliptin-metformin 1 EACH tablet, IR - ER, biphasic 24hr 1 each PO DAILY methocarbamol 500 mg tablet 1,000 mg PO Q8H PRN (Reason: muscle pain and spasm) Qty: 30 0RF Referrals Follow up/Referrals: Abhishek Hanson DO [Staff Physician, Orthopedics] - See instructions Referral Note: Knee sprain/strain, possible meniscal tear Shlomo Maradiaga MD [Primary Care Provider, Internal Medicine] - See instructions Activity Restrictions/Add. Instructions Additional Instructions/Restrictions: Please follow-up with the orthopedic doctor Dr. Hanson as listed above, please utilize ibuprofen Tylenol, use your knee brace as needed for support, please return to the emergency department with any worsening signs or symptoms, utilize ice, rest, and elevation. Clinical Impressions Clinical Impression: Left knee sprain Instructions Patient Instructions: DI for Knee Sprain, DI for Meniscal Tear Print Language Print Language: Bulgarian Discharge ED Provider: Dannie Pizano General Adult HPI <CELIA Danielle - Last Filed: 12/09/24 20:46> General Chief complaint: Extremity Injury, Lower Stated complaint: left knee is hurting Time Seen by Provider: 12/09/24 19:52 Mode of Arrival: Ambulatory Source of Information: Patient Description of Symptoms (Recalled from ER Triage Doc. by RN): c/o left foot pain after it popped earlier while walking up the steps. History of Present Illness HPI narrative: 69-year-old female presents to the emergency department accompanied by her for left knee pain that occurred around 2 PM today as the patient was going up the steps , when she felt a pop , when she was attempting to go up the last step, patient did not fall, did not strike her head, had no LOC, but did feel her knee give out on me ., She endorses pain and swelling to the knee, she denies any fever chills chest pain shortness of breath nausea vomiting constipation diarrhea, urinary type symptomatology, no redness or hot to touch sensation, patient has been ambulating on the knee, but does have some pain limiting range of motion. Patient has an alcohol tobacco drug use, other past medical history is consistent with hypothyroidism, T2DM, hypertension, HUMBERTO/MDD, GERD. Initial triage vitals are unremarkable. Onset (ago): hour(s) Related Data Home Medications ?Medication ?Instructions ?Recorded ?Confirmed ergocalciferol (vitamin D2) 1,250 50,000 unit PO WEEKLY Supplement 08/17/19 08/17/19 mcg (50,000 unit) capsule levothyroxine 50 mcg tablet 50 mcg PO DAILY hypothroidism 08/17/19 08/17/19 linagliptin 5 mg-metformin ER 1 each PO DAILY Diabetes 08/17/19 08/17/19 1,000 mg tablet,extended release 24 hr metoprolol tartrate 50 1 each PO DAILY blood pressure 08/17/19 08/17/19 mg-hydrochlorothiazide 25 mg tablet pantoprazole 40 mg tablet,delayed 40 mg PO DAILY acid reflux 08/17/19 08/17/19 release venlafaxine 75 mg tablet 75 mg PO DAILY Depression 08/17/19 08/17/19 Previous Rx's ?Medication ?Instructions ?Recorded methocarbamol 500 mg tablet 1,000 mg (2 x 500 mg) PO Q8H PRN 10/28/24 muscle pain and spasm #30 tabs Allergies Allergy/AdvReac Type Severity Reaction Status Date / Time mepivacaine (MEPIVACAINE) Allergy Unknown Verified 08/17/19 09:17 [facility] <CELIA Danielle - Last Filed: 12/09/24 20:46> [facility] Disclaimer: The information contained in this section may have been updated after the patient was seen, as this information can be updated by other users. Social History Smoking Status: Never smoker alcohol intake: never current occupational status: unemployed Travel in the last 8 weeks?: None caffeine: Yes Have you lived/traveled outside US in past 30 days?: No Contact w/someone who lives/traveled outside US past 30 days?: No Exposure to someone with infectious disease in past 14 days?: No Do you have a fever (greater than 100.4 F or 38 C)?: No Have you tested positive for COVID-19?: No Exposed to someone with COVID-19 in past 14 days?: No Do you have a sore throat?: No Do you have a cough?: No Do you have any weakness?: No Do you have any diarrhea?: No Are you experiencing any unusual bleeding?: No Do you have any muscle aches/pain?: No Do you have any abdominal pain?: No Are you experiencing loss of taste or smell?: No Other Medical History Have you received the Flu Vaccine for this season: No Have you received the Pneumonia Vaccine: No <CELIA Danielle - Last Filed: 12/09/24 20:46> ROS Obtained: Yes All systems reviewed & no additional complaints except as documented Physical Exam <CELIA Daneille - Last Filed: 12/09/24 20:46> General General appearance: alert and in no apparent distress Head Head exam: atraumatic and normocephalic Eye Eye exam: Present PERRL and EOMI ENT ENT exam: Present mucous membranes moist Neck Neck exam: Present normal inspection Chest Chest inspection: Present normal inspection and symmetric chest wall rise Respiratory Respiratory exam: Present normal lung sounds bilaterally; Absent respiratory distress Cardiovascular Cardiovascular exam: Present regular rate and normal rhythm Abdominal Exam Abdominal exam: Present soft; Absent tenderness Extremities Exam Extremities exam: Present normal inspection, tenderness and other (Along with the attending physician performed the examination of the patient, patient has midline joint effusion, positive Michaelle's test, and midline joint tenderness, anterior drawer sign negative, Seth test negative, otherwise neurovascular intact); Absent full ROM Expanded Lower Extremity Exam Left: Knee exam: Present tenderness, effusion and knee extension intact; Absent full ROM, anterior drawer sign or posterior draw sign Comment: Otherwise neurovascular intact Neurological Exam Neurological exam: Present alert and oriented X3 Psychiatric Psychiatric exam: Present normal affect Skin Skin exam: Present warm and dry Medical Decision Making <CELIA Danielle - Last Filed: 12/09/24 20:46> Medical Records Medical records reviewed: Yes I reviewed the patient's medical records. Screening: Per USPSTF and CDC recommendations, given the prevalence of disease in our region, it is our hospital?s policy to screen for HIV and viral Hepatitis for all patients aged 18 and over and those with ongoing risk factors. Portillo Inquiry Pt receiving controlled substance: No Portillo was queried for this patient: No Vital Signs: 12/09/24 19:01 12/09/24 20:48 Temperature 98.0 F 98.1 F Temperature Source Oral Pulse Rate 78 Pulse Rate [Left Radial] 87 Respiratory Rate 16 20 Blood Pressure 151/79 H Blood Pressure [Right Arm] 174/76 H Blood Pressure Mean [Right Arm] 108 02 Sat by Pulse Oximetry 96 Oxygen Delivery Method Room Air Room Air Orders (Tests/Meds): ED MEDICATIONS Discontinued Medications Generic Name Dose Route Start Last Admin Trade Name Luis PRN Reason Stop Dose Admin Acetaminophen 500 mg 12/09/24 20:14 12/09/24 20:33 Acetaminophen 500mg Tab PO 12/09/24 20:15 500 mg ONCE ONE Administration Ibuprofen 400 mg 12/09/24 20:14 12/09/24 20:33 Ibuprofen 400 Mg Tablet PO 12/09/24 20:15 400 mg ONCE ONE Administration ORDERS Category Date Time Status XR knee LT 3V Stat Exams 12/09/24 19:14 Completed Medical Decision Narrative: 69-year-old female presents emergency department with left knee pain after injury, differential diagnosis to include but not limited to knee ligamentous injury, knee sprain/strain, knee osteoarthritis, knee fracture among others. I discussed this patient's case with the attending physician , he saw and examined the patient as well. Will obtain left knee x-ray, will give 400 mg p.o. Motrin, and 500 mg p.o. Tylenol for symptomatic relief. I along with the attending physician reviewed the patient's knee x-ray, no acute bony abnormality, no dislocation or malalignment, patient would not like to wait for full radiology report, discussed that we will call her with results of radiology report if any reported abnormality, patient voiced understanding and agreed with current treatment plan/discharge plan, patient most likely has knee sprain/strain/ligamentous injury, most likely meniscal/MCL injury, will give patient hinging knee brace, recommend rest ice ibuprofen Tylenol, patient will follow-up with orthopedic bladder in the upcoming days, patient was given strict ED return precautions. Patient and family voiced understanding and agreed with current treatment plan/discharge plan. <Dannie Pizano MD - Last Filed: 12/10/24 15:15> Vital Signs: 12/09/24 19:01 12/09/24 20:48 Temperature 98.0 F 98.1 F Temperature Source Oral Pulse Rate 78 Pulse Rate [Left Radial] 87 Respiratory Rate 16 20 Blood Pressure 151/79 H Blood Pressure [Right Arm] 174/76 H Blood Pressure Mean [Right Arm] 108 02 Sat by Pulse Oximetry 96 Oxygen Delivery Method Room Air Room Air Orders (Tests/Meds): ED MEDICATIONS Discontinued Medications Generic Name Dose Route Start Last Admin Trade Name Luis PRN Reason Stop Dose Admin Acetaminophen 500 mg 12/09/24 20:14 12/09/24 20:33 Acetaminophen 500mg Tab PO 12/09/24 20:15 500 mg ONCE ONE Administration Ibuprofen 400 mg 12/09/24 20:14 12/09/24 20:33 Ibuprofen 400 Mg Tablet PO 12/09/24 20:15 400 mg ONCE ONE Administration ORDERS Category Date Time Status XR knee LT 3V Stat Exams 12/09/24 19:14 Completed Medical Decision Narrative: 69-year-old female presents emergency department with left knee pain after injury, differential diagnosis to include but not limited to knee ligamentous injury, knee sprain/strain, knee osteoarthritis, knee fracture among others. I discussed this patient's case with the attending physician , he saw and examined the patient as well. Will obtain left knee x-ray, will give 400 mg p.o. Motrin, and 500 mg p.o. Tylenol for symptomatic relief. I along with the attending physician reviewed the patient's knee x-ray, no acute bony abnormality, no dislocation or malalignment, patient would not like to wait for full radiology report, discussed that we will call her with results of radiology report if any reported abnormality, patient voiced understanding and agreed with current treatment plan/discharge plan, patient most likely has knee sprain/strain/ligamentous injury, most likely meniscal/MCL injury, will give patient hinging knee brace, recommend rest ice ibuprofen Tylenol, patient will follow-up with orthopedic bladder in the upcoming days, patient was given strict ED return precautions. Patient and family voiced understanding and agreed with current treatment plan/discharge plan. I was consulted by the ANGEL, and we discussed the complexity of the problems being addressed. I approved the treatment and management plan for this patient's care in the Emergency Department, thus performing a substantive portion of the medical decision making. Dannie Pizano MD Critical Care <CELIA Danielle - Last Filed: 12/09/24 20:46> Critical Care Time Critical Care Time: No
[2024-12-09] MEDS: IBUPROFEN 400 MG TABLET PO (20:33)
[2024-12-09] MEDS: ACETAMINOPHEN 500MG TAB 500 MG PO (20:33)
[2024-12-09 20:48] VITALS: BP 151/79; PULSE 78; RESP 20; TEMP 36.7; O2SAT 98
== END 2024-12-09 20:54 | disposition home or self-care (01) ==
PROVIDERS: Emergency Provider Emergency Medicine; PCP Internal Medicine Adolescent Medicine
DX: S83.92XA Sprain of unspecified site of left knee, initial encounter (principal); M25.562 Pain in left knee; X50.0XXA Overexertion from strenuous movement or load, initial encounter
CPT/HCPCS: 73562; 99283

== ENCOUNTER 2025-04-13 07:14 | Outpatient (CLI) | payer MEDICARE, SELFPAY ==
--- OUTSIDE RECORDS SUMMARY | 2025-02-21 15:23 | XMS_ITS | Encounter Summary ---
Author Organization [facility] Address [address] [id number] Care Team Providers Care Assembly Manager Name Role Phone Shlomo Maradiaga MD Primary Care Provider [phone] Reason for Referral * Imaging (Routine) - Closed Specialty Diagnoses / Procedures Referred By Carline madison Referred To Contact Radiology Diagnoses Left knee pain Contusion of left knee, initial encounter Procedures MR Knee Left wo IV Contrast Kimo Lora [facility] [place] [address] Phone: tel: fax: Referral ID Status Reason Start Date Expiration Date Visits Re quested Visits Authorized [id number] Closed 01/12/2025 07/14/2026 1 1 Reason for Visit * Imaging (Routine) - Closed Specialty Diagnoses / Procedures Referred By Carline madison Referred To Contact Radiology Diagnoses Left knee pain Contusion of left knee, initial encounter Procedures MR Knee Left wo IV Contrast Kimo Lora PA [address] [place] [address] Phone: tel: fax: Referral ID Status Reason Start Date Expiration Date Visits Re quested Visits Authorized [id number] Closed 01/12/2025 07/14/2026 1 1 Encounter Details Date Type Department Care Team (Latest Contact Info) Description 02/21/2025 3:23 PM EDT - 02/21/2025 11:59 PM EDT Hospital Encounter [facility] MRI [address] [place] [address] Left knee pain; Contusion of left knee, initial encounter Discharge Disposition: Home or Self Care Social History Tobacco Use Types Packs/Day Years Used Date Smoking Tobacco: Never Alcohol Use Standard Drinks/Week Comments No 0 (1 standard drink = 0.6 oz pur e alcohol) Comments Unknown Sex and Gender Information Value Date Recorded Sex Assigned at Not on file Legal Sex Female 8:59 PM EDT Gender Identity Not on file Sexual Orientation Not on file documented as of this encounter Plan of Treatment Not on file documented as of this encounter Procedures Procedure Name Priority Date/Time Associated Diagnosis Comments MR KNEE LEFT WO IV CONTRAST Routine 02/21/2025 4:04 PM EDT Left knee pain Contusion of left knee, initial encounter documented in this encounter Results * MR Knee Left wo IV Contrast (02/21/2025 4:04 PM EDT) Anatomical Region Laterality Modality Knee Left Magnetic Resonan ce Impressions 02/21/2025 5:32 PM EDT Periligamentous edema along the MCL with increased signal in the ligament could represent grade 2 sprain. Radial tear of the posterior horn medial meniscus. Further regularity extending into the body of the medial meniscus could represent degenerative change or further complex tearing. There is associated medial subluxation of the medial meniscus resulting in bowing of the MCL Increased signal throughout the ACL with no discrete disruption could represent degenerative change however component of low-grade injury not entirely excluded. Mild increased signal in the distal semimembranosus tendon could represent low- grade strain. Edema along the pes anserine tendons likely secondary to adjacent injuries however, low-grade injury not entirely excluded. Degenerative change throughout the knee as above with chondral thinning and irregularity most notable along the lateral trochlear groove and within the medial compartment as above. Mild increased signal in the popliteal tendon possibly degenerative however low- grade injury not entirely excluded. Fluid signal focus along the medial margin of the semimembranosus tendon could represent ganglion. Filling defect in this region possibly representing loose body. Trace Antunez's cyst. CRITICAL RESULT: No. COMMUNICATION: Per this written report. By electronically signing this report, I, the attending physician, attest that I have personally reviewed the images/data for the above examination(s) and agree with the final edited report. Drafted by Kimo Toro MD on 02/21/2025 4:42 PM Final report signed by Dominick Infante on 02/21/2025 5:32 PM Narrative 02/21/2025 5:32 PM EDT CLINICAL INDICATION: Pain TECHNIQUE: Axial T2 FS, sagittal proton density FS, sagittal CATALINO, sagittal proton density, coronal T1, coronal proton density FS, coronal oblique proton density. COMPARISON: None. FINDINGS: Menisci: Radial tear extending to the posterior horn medial meniscus. Further increased signal throughout the body of the meniscus could represent further complex tear or degenerative change. Increased signal in the lateral meniscus possibly degenerative. Ligaments: ACL grossly intact however there is diffuse increased signal throughout the ACL. Mild increased signal in the PCL possibly degenerative. Periligamentous edema along the MCL with mild increased signal in the MCL. Bowing of the MCL possibly due to medial subluxation of the medial meniscus. The fibular collateral ligament appears grossly intact. Tendons/Muscles: Mild edema along the distal pes anserine tendons. The iliotibial band appears intact. Mild increased signal in the distal semimembranosus. Posterolateral Corner: Mild increased signal in the popliteal tendon possibly degenerative. The popliteal fibular ligament appears grossly intact. The posterior capsule appears grossly intact. Patellofemoral Space and Extensor Mechanism: The patella is normally aligned in the trochlear groove. The supra and infrapatellar fat is normal in signal. The patellar tendon and quadriceps tendon appear grossly intact.. Bones and Cartilage: No acute fracture, AVN, or suspicious intraosseous lesion. Mild patellar chondral malacia. Irregularity and full-thickness chondral fissuring overlying the lateral trochlear groove with associated degenerative marrow signal changes. Small focus of chondral fissuring and irregularity along the central aspect of the trochlea with associated marrow signal change. There is [id number] chondral thinning in the lateral compartment. Moderate severe chondral thinning throughout the medial compartment with foci of near full-thickness chondral loss. Soft Tissues: There is no joint effusion . Trace popliteal cyst. There is a fluid signal focus along the medial margin of this with a small filling defect could represent potential ganglion with loose body.. Procedure Note Dominick Infante MD - 02/21/2025 CLINICAL INDICATION: Pain TECHNIQUE: Axial T2 FS, sagittal proton density FS, sagittal CAATLINO, sagittal protondensity, coronal T1, coronal proton density FS, coronal oblique protondensity. COMPARISON: None. FINDINGS: Menisci: Radial tear extending to the posterior horn medial meniscus.Further increased signal throughout the body of the meniscus couldrepresent further complex tear or degenerative change. Increased signal inthe lateral meniscus possibly degenerative. Ligaments: ACL grossly intact however there is diffuse increased signalthroughout the ACL. Mild increased signal in the PCL possiblydegenerative. Periligamentous edema along the MCL with mild increasedsignal in the MCL. Bowing of the MCL possibly due to medial subluxation ofthe medial meniscus. The fibular collateral ligament appears grosslyintact. Tendons/Muscles: Mild edema along the distal pes anserine tendons. Theiliotibial band appears intact. Mild increased signal in the distalsemimembranosus. Posterolateral Corner: Mild increased signal in the popliteal tendonpossibly degenerative. The popliteal fibular ligament appears grosslyintact. The posterior capsule appears grossly intact. Patellofemoral Space and Extensor Mechanism: The patella is normallyaligned in the trochlear groove. The supra and infrapatellar fat is normalin signal. The patellar tendon and quadriceps tendon appear grosslyintact.. Bones and Cartilage: No acute fracture, AVN, or suspicious intraosseouslesion. Mild patellar chondral malacia. Irregularity and full-thicknesschondral fissuring overlying the lateral trochlear groove with associateddegenerative marrow signal changes. Small focus of chondral fissuring andirregularity along the central aspect of the trochlea with associatedmarrow signal change. There is [id number] chondral thinning in thelateral compartment. Moderate severe chondral thinning throughout themedial compartment with foci of near full-thickness chondral loss. Soft Tissues: There is no joint effusion . Trace popliteal cyst. There darcie fluid signal focus along the medial margin of this with a small fillingdefect could represent potential ganglion with loose body.. IMPRESSION: Periligamentous edema along the MCL with increased signal in the ligamentcould represent grade 2 sprain. Radial tear of the posterior horn medial meniscus. Further regularityextending into the body of the medial meniscus could representdegenerative change or further complex tearing. There is associated medialsubluxation of the medial meniscus resulting in bowing of the MCL Increased signal throughout the ACL with no discrete disruption couldrepresent degenerative change however component of low-grade injury notentirely excluded. Mild increased signal in the distal semimembranosus tendon could representlow- grade strain. Edema along the pes anserine tendons likely secondary toadjacent injuries however, low-grade injury not entirely excluded. Degenerative change throughout the knee as above with chondral thinningand irregularity most notable along the lateral trochlear groove andwithin the medial compartment as above. Mild increased signal in the popliteal tendon possibly degenerativehowever low- grade injury not entirely excluded. Fluid signal focus along the medial margin of the semimembranosus tendoncould represent ganglion. Filling defect in this region possiblyrepresenting loose body. Trace Antunez's cyst. CRITICAL RESULT: No. COMMUNICATION: Per this written report. By electronically signing this report, I, the attending physician, attestthat I have personally reviewed the images/data for the aboveexamination(s) and agree with the final edited report. Drafted by Kimo Toor MD on 02/21/2025 4:42 PM Final report signed by Dominick Infante on 02/21/2025 5:32 PM [facility] MRI PROCEDURES Final Resu lt documented in this encounter Visit Diagnoses Diagnosis Left knee pain Pain in joint, lower leg Contusion of left knee, initial encounter documented in this encounter Care Teams Assembly Manager Relationship Specialty Start Date End Date Shlomo Maradiaga MD [address] [place] [address] PCP - General 10/25/20 documented as of this encounter
--- OUTSIDE RECORDS SUMMARY | 2025-04-13 07:15 | XMS_ITS | Clinical Summary ---
Author Organization [facility] Address [address] [place] [address] Phone Care Team Providers Care Human Projectile Name Role Phone Juanita SHERMAN, Alexandreaashmyla Unavailable [...]
--- NOTE | 2025-04-13 07:16 | US_ITS ---
FINAL REPORT CLINICAL HISTORY: ABNORMAL LIVER FUNCTIONS COMPARISON: None FINDINGS: Sonographic images of the right upper quadrant were obtained. The pancreas is partially obscured. Fatty infiltration of the liver is present. The gallbladder is surgically absent. There is no evidence of biliary ductal dilatation.The common duct measures 6 mm. Limited images of the right kidney are unremarkable. IMPRESSION: Fatty infiltration of the liver, and a prior cholecystectomy. Reviewed, Interpreted and Dictated by Melchor Curtis MD Transcribed by Missy Woo Authenticated and [facility]
--- OUTSIDE RECORDS SUMMARY | 2025-04-13 07:16 | XMS_ITS | Encounter Summary ---
Author Organization [facility] Address [address] [place] [address] Care Team Providers Care Receiver Bulk System Name Role Phone Shlomo Maradiaga MD Primary Care Provider [phone] Encounter Details Date Type Department Care Team (Latest Contact Info) Description 02/21/2025 Travel Social History Tobacco Use Types Packs/Day Years [...] on file documented as of this encounter Visit Diagnoses Not on filedocumented in this encounter Care Teams Receiver Bulk System Relationship Specialty Start Date End Date Shlomo Maradiaga MD [address] [place] [address] PCP - General 10/25/20 documented as of this encounter
--- OUTSIDE RECORDS SUMMARY | 2025-04-13 07:16 | XMS_ITS | Clinical Summary ---
Author Organization [facility] Address [address] [id number] Care Team Providers Care Toaster Element Repairer Name Role Phone Shlomo Maradiaga MD Primary Care Provider [phone] Encounters Date Type Department Care Team Description 02/21/2025 3:23 PM EDT - 02/21/2025 11:59 PM EDT Hospital Encounter [facility] MRI [address] [place] [address] Left knee pain; Contusion of left knee, initial encounter Discharge Disposition: Home or Self Care 02/21/2025 Travel 02/20/2025 Travel from Last 3 Months Family History Medical History Relation Name Comments [...] - Inhaled Oxygen Concentration - - Weight 88.9 kg (196 lb) 02/21/2025 3:38 PM EDT Height 157.5 cm (5' 2 ) 02/21/2025 3:38 PM EDT Body Mass Index 35.85 02/21/2025 3:38 PM EDT Plan of Treatment Health Maintenance Due Date Last Done Comments [facility]-Bone Density Scan 1957 [facility]-Depression Screening 1957 [facility]-Hepatitis C Screening 1957 [facility]-Medicare Annual Wellness (AWV) 1957 [facility]-Infant/Child/Adol SDOH Screenings 1957 [facility]-Obesity Intervention 09/17/1963 [facility]- SDOH Screenings 09/17/1975 [facility]-Adult SDOH Screenings 09/17/1975 CT Colonography 2002 Colonoscopy 2002 FIT-DNA 2002 FIT 2002 FOBT 2002 Sigmoidoscopy 2002 [facility]-Colorectal Cancer Screening 2002 [facility]-Breast Cancer Screening 09/17/2007 [facility]-Zoster Vaccines (1 of 2) 09/17/2007 [facility]-DTaP,Tdap,and Td Vaccine s (2 - Td or Tdap) 04/05/2024 04/05/2014, 08/17/1996 [id number] Vaccine (2 - season) 2025 09/11/2020 [facility]-Influenza Vaccine (#1) 02/12/202502/18, 04/26/2020 [facility]-RSV Vaccine: 60+ Years o r (1 - 1-dose 75+ series) 2032 [facility]-Pneumococcal Vaccine: 50 + Years Completed 02/18/2023 HPV Vaccines Aged Out No longer eligi ble based on patient's age to complete this topic [facility]-HIB Vaccines Aged Out No longer e ligible based on patient's age to complete this topic [facility]-Hepatitis A Vaccines Aged Out No longer eligible based on patient's age to complete this topic [facility]-IPV Vaccines Aged Out No longer e ligible based on patient's age to complete this topic [facility]-Rotavirus Vaccines Aged Out No lo nger eligible based on patient's age to complete this topic Procedures Procedure Name Priority Date/Time Associated Diagnosis Comments MR KNEE LEFT WO IV CONTRAST Routine 02/21/2025 4:04 PM EDT Left knee pain Contusion of left knee, initial encounter from Last 3 Months Results * MR Knee Left wo IV [...] with associated marrow signal change. There is [id number]-[id number] chondral thinning in the lateral compartment. Moderate [...] sagittal proton density FS, sagittal CATALINO, sagittal protondensity, coronal T1, coronal proton density [...] trochlea with associatedmarrow signal change. There is [id number]-[id number] chondral thinning in thelateral compartment. Moderate severe [...] by Dominick Infante on 02/21/2025 5:32 PM us [facility] MRI PROCEDURES Final Resu lt from Last 3 Months Insurance [employer] MEDICARE Care Teams Toaster Element Repairer Relationship Specialty Start Date End Date Shlomo Maradiaga MD [address] [place] [address] PCP - General 10/25/20
--- OUTSIDE RECORDS SUMMARY | 2025-04-13 07:16 | XMS_ITS | Encounter Summary ---
Author Organization [facility] Address [address] [place] [address] Care Team Providers Care Foam Charger Name Role Phone Shlomo Maradiaga MD Primary Care Provider [phone] Encounter Details Date Type Department Care Team (Latest Contact Info) Description 02/20/2025 Travel Social History Tobacco Use Types Packs/Day [...] on filedocumented in this encounter Care Teams Foam Charger Relationship Specialty Start Date End Date Shlomo Maradiaga MD [address] [place] [address] PCP - General 10/25/20 documented as of this encounter
== END 2025-04-13 23:59 | disposition home or self-care (01) ==
PROVIDERS: PCP Internal Medicine Adolescent Medicine; Visit Provider Internal Medicine Adolescent Medicine
DX: K76.0 Fatty (change of) liver, not elsewhere classified (principal); R79.89 Other specified abnormal findings of blood chemistry; Z90.49 Acquired absence of other specified parts of digestive tract
CPT/HCPCS: 76705

== ENCOUNTER 2025-05-08 11:22 | Day surgery (SDC) | payer MEDICARE, SELFPAY ==
[2025-05-08 11:27] VITALS: BP 157/78; PULSE 82; RESP 18; O2SAT 95
[2025-05-08 11:30] VITALS: BP 139/84; PULSE 74; RESP 16; O2SAT 97; BMI 35.1
[2025-05-08] MEDS: LIDOCAINE 1% 5ML PF VIAL 5 ML (11:33)
--- NOTE | 2025-05-08 11:33 | EXP.PAIN.PRO ---
Procedure Date: 05/08/25 Time: 11:30 Anesthesiologist:: Aurelio Desai CRNA Complications:: None Pre-procedure Diagnosis:: Left sacroiliitis Post-procedure Diagnosis:: Same Indications for Procedure:: Patient is a very pleasant 69-year-old female who comes to clinic today for a left sacroiliac joint injection of cortisone. Patient describes left low lumbar back pain that is constant, dull, aching. Upon examination she has extreme point tenderness over the left sacroiliac joint. She reports have difficulty with sitting. Difficulty with ambulation. Difficulty transitioning from sitting to standing. She rates her pain 7/10. Procedure Details:: Procedure: Left sacroiliac injection under fluoroscopy Informed consent was obtained and the risk and benefits of the procedure were explained to the patient.~ The patient was taken to the procedure room and noninvasive monitors were placed including noninvasive blood pressure cuff and pulse oximeter.~ The patient was placed prone on the procedure table.~ The~ left hip was cleansed using Betadine as a cleansing solution.~ C-arm fluorosocpy was used to view the left SI joint.~ The skin and subcutaneous tissues were anesthetized using Lidocaine 1.5% and a 25-gauge needle.~ After this, a 22-gauge spinal needle was inserted under fluoroscopic guidance into the inferior aspect of the left SI joint.~ Omnipaque dye was injected and a good spread was seen throughout the joint.~ After this, approximately 5 mL of bupivacaine 0.25% and dexamethasone 10 mg was incrementally injected into the sacroiliac joint.~ The patient tolerated the procedure well with no complications.~ The patient was observed in the Pain Clinic for a period of 30-45 minutes, then discharged home neurologically intact.~ Plan and Disposition:: Patient was discharged without incident.
[2025-05-08] MEDS: BUPIVACAINE 0.25% 10ML INJ 25 MG IJ (11:35)
[2025-05-08] MEDS: DEXAMETHASONE 10MG/ML 1ML VIAL 10 MG (11:36)
[2025-05-08 11:39] VITALS: BP 134/76; PULSE 77; RESP 16; O2SAT 96
== END 2025-05-08 11:39 | disposition home or self-care (01) ==
PROVIDERS: PCP Internal Medicine Adolescent Medicine; Visit Provider Nurse Anesthetist, Certified Registered
DX: M46.1 Sacroiliitis, not elsewhere classified (principal); E11.9 Type 2 diabetes mellitus without complications; K21.9 Gastro-esophageal reflux disease without esophagitis; I10 Essential (primary) hypertension; E03.9 Hypothyroidism, unspecified; Z98.1 Arthrodesis status; Z96.651 Presence of right artificial knee joint; Z56.0 Unemployment, unspecified; Z88.4 Allergy status to anesthetic agent; Z79.899 Other long term (current) drug therapy; Z79.84 Long term (current) use of oral hypoglycemic drugs; Z79.890 Hormone replacement therapy
CPT/HCPCS: G0260; J0665; J1100; J2003